=== PATIENT | male | born 1945 | race Caucasian/White ===

== ENCOUNTER 2019-07-15 12:10 | Inpatient (IN) ==
--- NOTE | 2019-07-15 12:31 | Diag Imaging Result Doc PS360 ---
EXAM: CT HEAD/C-SPINE W/O CONTRAST 07/15/2019 HISTORY: head injury TECHNIQUE: This exam was performed using automated exposure control, adjustment of mA or kV according to patient size, and/or use of iterative reconstruction technique. COMMENT: There are dense calcifications in the vertebral arteries bilaterally and also in the right internal carotid artery. There is no evidence of mass effect, bleed, or abnormal extra-axial fluid collection. Compared to 12/14/2016, there has been no appreciable change. There is some mucosal thickening in the right maxillary sinus. There are no air-fluid levels. The calvarium is intact. Cervical spine: There is no evidence of acute fracture or subluxation. There are degenerative changes in the atlantoaxial joint anteriorly and severe facet arthropathy on the right at C5-6 and to some extent at C3-4 and on the left at the C3-4 level. There is posterior osteophyte formation at C5-6 and C6-7. Compared to the previous study of 10/20/2014, the erosive changes at the C5-6 level on the right have improved. Otherwise are has been no significant change in the appearance of the cervical spine. IMPRESSION: No evidence of acute intracranial disease. Degenerative changes in the cervical spine as described. Electronically signed by Drew Lux 07/15/2019 12:28 PM
[2019-07-15 13:03] LABS: BE -4.7 mmoll (-3.0-3.0); BLOOD TYPE ARTERIAL; HCO3-(ACT) 21.1 mmoll (20.0-26.0); METHB 1.8 % (0.0-1.5); O2(CT) 16.5 mL/dL (15.0-23.0); O2HB 92.1 % (95.0-99.0); PCO2(98.6) 32 mmHg (35-45); PO2(98.6) 74 mmHg (60-100); SAMPLE BLOOD; THB 12.7 g/dL (11.5-17.4); pH(98.6) 7.39 (7.35-7.45)
[2019-07-15 13:06] LABS: ALLEN TEST NO; MODALITY ROOM AIR
[2019-07-15 13:29] LABS: BASO# 0.01 X1000 (0.0-0.2); BASO% 0.1 % (0.0-0.8); EOS# 0.01 X1000 (0.0-0.7); EOS% 0.1 % (0.0-10.0); HEMATOCRIT 38.7 % (42.0-52.0); IMM GRAN# 0.01 X1000 (0.0-0.04); IMM GRAN% 0.1 % (0.0-0.5); LYMPH# 0.58 X1000 (1.2-3.4); LYMPH% 8.6 % (20.5-51.1); MCH 33.6 PG (27-31); MCHC 33.6 g/dL (33-37); MONO# 0.32 X1000 (0.11-0.59); MONO% 4.7 % (1.7-9.3); MPV 9.5 FL (7.4-10.4); NEUT# 5.82 X1000 (1.4-6.5); NEUT% 86.4 % (42.2-75.2); PLT 128 X1000 (130-400); RBC 3.87 XMIL (4.7-6.1); RDW 15.1 % (11.5-14.5); WBC 6.75 X1000 (4.8-10.8)
[2019-07-15 13:40] LABS: AGAP 20; ALBUMIN 4.6 g/dL (3.5-5.0); ALKALINE PHOSPHATASE 91 U/L (32-122); BUN 8 mg/dL (8-22); CALCIUM 9.4 mg/dL (8.8-10.2); CHLORIDE 103 mmol/L (98-107); COSMO 288; ESTIMATED GFR > 60; GLUCOSE 89 mg/dL (70-104); GOT 102 U/L (10-34); GPT 75 U/L (10-44); POTASSIUM 3.4 mmol/L (3.5-5.1); SODIUM 146 mmol/L (136-145); TCO2 23 mmol/L (25-35); TOTAL PROTEIN 6.9 g/dL (6.3-8.3)
--- NOTE | 2019-07-15 13:40 | EKG Report ---
Test Performed on : 07/15/2019 12:49:24 PM Test Reason : fall Blood Pressure : / mmHG Vent. Rate : 078 BPM Atrial Rate : 078 BPM P-R Int : 258 ms QRS Dur : 090 ms QT Int : 416 ms P-R-T Axes : 061 -26 -09 degrees QTc Int : 474 ms Sinus rhythm. with 1st degree AV block. Moderate voltage criteria for LVH, may be normal variant Borderline ECG No previous ECGs available Unconfirmed Result
[2019-07-15 13:41] LABS: CK PROFILE 1585 U/L (24-204); INR 1.05; PROTIME 14.2 Seconds (11.0-16.0)
--- NOTE | 2019-07-15 13:47 | Diag Imaging Result Doc PS360 ---
EXAM: SHOULDER-LEFT HISTORY: fall TECHNIQUE: Shoulder three views including an axillary Y-view COMPARISON: None. FINDINGS: There is a fracture to the lateral humeral head. Humeral head is not dislocated from the glenoid. No separation to the acromioclavicular joint. IMPRESSION: Lateral humeral head fracture. Electronically signed by Wally Kirby 07/15/2019 1:44 PM
--- NOTE | 2019-07-15 13:48 | Diag Imaging Result Doc PS360 ---
EXAM: CHEST-PORTABLE HISTORY: fall TECHNIQUE: Chest single view COMPARISON: 12/03/2016 FINDINGS: The lungs are well expanded. No pneumothorax. No contusion. The heart is not enlarged. The vessels are not distended. There are no infiltrates. No effusion identified. IMPRESSION: No injury. Electronically signed by Wally Kirby 07/15/2019 1:45 PM
[2019-07-15] MEDS ORDERED: NS 1,000 ML IV ONE ×2 (13:59→14:18)
[2019-07-15 14:12] LABS: CK INDEX 1.3 (0.0-2.5); CK-MB 19.89 ng/mL (0.0-5.0)
[2019-07-15] MEDS ORDERED: ZOSYN 2.25 GM in NS 50 ML IV ONE (14:13)
[2019-07-15] MEDS ORDERED: ZOSYN 3.375 GM in NS 50 ML IV ONE ×2 (14:17→14:32)
[2019-07-15] MEDS ORDERED: NS 650 ML IV ONE (14:18)
--- NOTE | 2019-07-15 14:55 | PROVIDER DOCUMENTATION ---
This chart was entered by Nathalia Posada Scribe, acting as scribe for Rosalind Angulo MD. HPI-Head Injury - General Stated Complaint: fall Time Seen by Provider: 07/15/19 12:35 Source: patient Allergies/Adverse Reactions: Patient Allergies Allergy/AdvReac Type Severity Reaction Status Date / Time Sulfa (Sulfonamide Allergy Unknown Verified 07/15/19 14:19 Antibiotics) Home Medications: Home Medication List Medication Instructions Recorded Confirmed Last Taken Type Amlodipine [Norvasc] 5 mg PO DAILY 12/30/18 07/15/19 Unknown History Atenolol [Tenormin] 25 mg PO DAILY 12/30/18 07/15/19 12/30/18 History Lisinopril 20 mg PO DAILY 12/30/18 07/15/19 12/29/18 History - History of Present Illness-Head Injury Nature of Presenting Problem: 73yom presents to ED cc abrasions to right side of head after falling last night from a 2 step step ladder. Pt reports he fell from ladder, hit head, got up, cleaned himself, felt dizzy and fell again. Pt reports he must have slept on floor b/c when he 'woke' up this morning he was on floor so he called EMS. Pt reports he drank whiskey last night. Pt denies being on blood thinners. Pt has hx of HTN. Head Injury Location: reports: occipital Onset/Duration: reports: last night Method of Injury: reports: fell Any recent trauma/injury?: reports: minor, to head Loss of Consciousness: unsure Injury Associated Symptoms: reports: headaches Locality of Occurance: Home Similar Symptoms Previously?: No Recently seen or treated by another doctor?: No Review of Systems - Adult - REVIEW OF SYSTEMS - ADULT Constitutional: reports: see HPI. denies: chills, fever, fatique Eyes: reports: no symptoms reported Ears, Nose, Mouth & Throat: reports: no symptoms reported Cardiovascular: reports: no symptoms reported Respiratory: reports: see HPI Gastrointestinal: reports: see HPI. denies: abdominal pain, diarrhea, nausea, vomiting Genitourinary: reports: no symptoms reported Musculoskeletal: reports: see HPI, joint pain (left shoulder) Integumentary: reports: see HPI, other (laceration to occipital) Neurological: reports: see HPI, headache/migraines Psychiatric: reports: no symptoms reported Endocrine: reports: no symptoms reported Hematologic/Lymphatic: reports: no symptoms reported Allergic/Immunologic: reports: no symptoms reported All Other Systems: Reviewed and Negative Past History - Adult - PAST MEDICAL HISTORY-ADULT Review of Records: reports: Nursing Assessment Review, Medications Reviewed, Social history reviewed & non-contributory. Major Childhood Illnesses: reports: denies history Cardiovascular: reports: HTN Respiratory: reports: denies history Gastrointestinal: reports: denies history Obstetrical/Gynecological: reports: denies history Genitourinary: reports: denies history Musculoskeletal: reports: denies history Neurological: reports: denies history Psychiatric: reports: denies history Endocrine/Immune: reports: denies history Other Conditions: reports: denies history - PRIOR SURGERIES/PROCEDURES Surgical/Procedure History: reports: other (Sabrina fundoplasty) - IMMUNIZATION STATUS Childhood Immunizations: UTD, See Nurse Assessment Flu Vaccine: See Nurse Assessment - FAMILY HISTORY Family History: reviewed, not pertinent Physical Exam- Neurological - Physical Exam-Neuro Initial Vital Signs Reviewed: Yes General Appearance: appears well, alert. negative: anxious, combative Eye Exam: bilateral eye: normal inspection, PERRL HENMT: normocephalic/atraumatic, moist mucous membranes. negative: angioedema Head Injury: other (3cm total laceration to occipital). negative: active bleeding Respiratory: chest non-tender, lungs clear, normal breath sounds. negative: wheezing Cardiovascular: normal peripheral pulses, regular rate, rhythm. negative: bradycardia, tachycardia Abdominal Exam: normal bowel sounds, non tender, soft. negative: tenderness Extremity: tenderness (left shoulder) rehabilitation medicine physician Exam: normal hearing, normal speech, PERRL Neurologic: rehabilitation medicine physician II-XII nml as tested, grossly normal. negative: facial droop, focal weakness, motor weakness, sensory deficit Integumentary: normal color, laceration(s) (3cm total laceration to occipital). negative: diaphoresis, jaundice Psych/Mental Status: normal mood/affect, oriented x 3. negative: anxious, d isheveled - Glascow Coma Scale Best Eye Response: (4) open spontaneously Best Verbal Response: (5) oriented Best Motor Response: (6) obeys commands Total Glascow Score: 15 Progress - PLAN OF CARE/RESULTS Progress/Plan/Lab Results: Vital Signs - 8 hr 07/15/19 12:13 07/15/19 13:53 07/15/19 14:11 Temperature 97.9 F Pulse Rate 79 71 64 Respiratory Rate 16 20 Blood Pressure 109/62 88/58 103/57 O2 Sat by Pulse Oximetry 92 L 96 92 L Laboratory Results - last 24 hr 07/15/19 07/15/19 07/15/19 12:35 12:43 13:00 WBC RBC Hgb Hct MCV MCH MCHC RDW Std Deviation Plt Count MPV Immature Gran % (Auto) Neut % (Auto) Lymph % (Auto) [place] % (Auto) Eos % (Auto) Baso % (Auto) Immature Gran # (Auto) Neut # (Auto) Lymph # (Auto) [place] # (Auto) Eos # (Auto) Baso # (Auto) PT INR PTT (Actin FS) Specimen Type ARTERIAL Sample Site R BRACHIAL pH 7.39 pCO2 32 L pO2 74 HCO3 21.1 Base Excess -4.7 L Oxyhemoglobin 92.1 L ABG O2 Sat (Calculated) 16.5 ABG O2 Saturation 96.0 ABG Carboxyhemoglobin 2.30 ABG Methemoglobin 1.8 H Dejan Test NO A-a O2 Difference 36.0 Total Hemoglobin 12.7 Lactate 4.80 H* Blood Gas Modality ROOM AIR FiO2 % 21.0 Sodium Potassium Chloride Carbon Dioxide Anion Gap BUN Creatinine Estimated GFR/1.73 m2 BUN/Creatinine Ratio Glucose POC Glucose 75 Calculated Osmolality Calcium Total Bilirubin AST ALT Alkaline Phosphatase Creatine Kinase Creatine Kinase Index CK-MB (CK-2) Troponin T Total Protein Albumin Globulin Albumin/Globulin Ratio Plasma Lactate Plasma/Serum Ethyl Alc 188 H 07/15/19 07/15/19 07/15/19 13:00 13:00 13:00 WBC 6.75 RBC 3.87 L Hgb 13.0 L Hct 38.7 L MCV 100.0 H MCH 33.6 H MCHC 33.6 RDW Std Deviation 15.1 H Plt Count 128 L MPV 9.5 Immature Gran % (Auto) 0.1 Neut % (Auto) 86.4 H Lymph % (Auto) 8.6 L [place] % (Auto) 4.7 Eos % (Auto) 0.1 Baso % (Auto) 0.1 Immature Gran # (Auto) 0.01 Neut # (Auto) 5.82 Lymph # (Auto) 0.58 L [place] # (Auto) 0.32 Eos # (Auto) 0.01 Baso # (Auto) 0.01 PT INR PTT (Actin FS) Specimen Type Sample Site pH pCO2 pO2 HCO3 Base Excess Oxyhemoglobin ABG O2 Sat (Calculated) ABG O2 Saturation ABG Carboxyhemoglobin ABG Methemoglobin Dejan Test A-a O2 Difference Total Hemoglobin Lactate Blood Gas Modality FiO2 % Sodium 146 H Potassium 3.4 L Chloride 103 Carbon Dioxide 23 L Anion Gap 20 BUN 8 Creatinine 1.0 Estimated GFR/1.73 m2 > 60 BUN/Creatinine Ratio 8 Glucose 89 POC Glucose Calculated Osmolality 288 Calcium 9.4 Total Bilirubin 1.20 H AST 102 H ALT 75 H Alkaline Phosphatase 91 Creatine Kinase 1585 H Creatine Kinase Index 1.3 CK-MB (CK-2) 19.89 H Troponin T Total Protein 6.9 Albumin 4.6 Globulin 2.0 Albumin/Globulin Ratio 2.0 Plasma Lactate 4.5 H* Plasma/Serum Ethyl Alc 07/15/19 07/15/19 07/15/19 13:00 13:00 13:19 WBC RBC Hgb Hct MCV MCH MCHC RDW Std Deviation Plt Count MPV Immature Gran % (Auto) Neut % (Auto) Lymph % (Auto) [place] % (Auto) Eos % (Auto) Baso % (Auto) Immature Gran # (Auto) Neut # (Auto) Lymph # (Auto) [place] # (Auto) Eos # (Auto) Baso # (Auto) PT 14.2 INR 1.05 PTT (Actin FS) 25.0 Specimen Type Sample Site pH pCO2 pO2 HCO3 Base Excess Oxyhemoglobin ABG O2 Sat (Calculated) ABG O2 Saturation ABG Carboxyhemoglobin ABG Methemoglobin Dejan Test A-a O2 Difference Total Hemoglobin Lactate Blood Gas Modality FiO2 % Sodium Potassium Chloride Carbon Dioxide Anion Gap BUN Creatinine Estimated GFR/1.73 m2 BUN/Creatinine Ratio Glucose POC Glucose 82 Calculated Osmolality Calcium Total Bilirubin AST ALT Alkaline Phosphatase Creatine Kinase Creatine Kinase Index CK-MB (CK-2) Troponin T 0.011 Total Protein Albumin Globulin Albumin/Globulin Ratio Plasma Lactate Plasma/Serum Ethyl Alc Orders Category Date Time Status Arm Sling DIRECTED Care 07/15/19 13:59 Active Cardiac Monitoring DIRECTED Care 07/15/19 12:39 Active Finger Stick Blood Sugar (ED) DIRECTED Care 07/15/19 12:39 Active Oxygen Therapy- ED Nursing DIRECTED Care 07/15/19 12:39 Active Saline Loc NOW Care 07/15/19 12:39 Active CHEST-PORTABLE [RAD] Stat Exams 07/15/19 12:[address] HEAD/C-SPINE W/O CONTRAST [CT] Stat Exams 07/15/19 12:05 Completed SHOULDER-LEFT [RAD] Stat Exams 07/15/19 12:40 Completed ABG [RESP] Routine Lab 07/15/19 12:43 Completed ALCOHOL BLOOD Stat Lab 07/15/19 13:00 Completed CBC WITH ELECTRONIC DIFF [HEME] Stat Lab 07/15/19 13:00 Completed CK PROFILE [SP CHEM] Stat Lab 07/15/19 13:00 Completed CK PROFILE [SP CHEM] Stat Lab 07/15/19 14:03 Ordered COMPREHENSIVE METABOLIC PANEL [CHEM] Stat Lab 07/15/19 13:00 Completed LACTATE, PLASMA [CHEM] Stat Lab 07/15/19 13:00 Completed PROTIME WITH INR [COAG] Stat Lab 07/15/19 13:00 Completed PTT [COAG] Stat Lab 07/15/19 13:00 Completed TROPONIN T Stat Lab 07/15/19 13:00 Completed TROPONIN T Stat Lab 07/15/19 14:[address] [URINALYSIS] Stat Lab 07/15/19 13:34 Or[address] URINE DRUG SCREEN PL Stat Lab 07/15/19 13:34 Ordered 0.9% Sodium Chloride Inj [Ns] 1,000 ml Med 07/15/19 13:59 Active IV 999 mls/hr 0.9% Sodium Chloride Inj [Ns] 1,000 ml Med 07/15/19 14:18 Active IV 999 mls/hr 0.9% Sodium Chloride Inj [Ns] 650 ml Med 07/15/19 14:18 Active IV 999 mls/hr Piperacillin/Tazobactam [Zosyn] 2.25 gm Med 07/15/19 14:13 Discontinued 0.9% Sodium Chloride Inj [Ns] 50 ml IV NOW Piperacillin/Tazobactam [Zosyn] 3.375 gm Med 07/15/19 14:32 Discontinued 0.9% Sodium Chloride Inj [Ns] 50 ml IV NOW Altered Mental Status Stat Oth 07/15/19 12:39 Ordered EKG [EKG] Stat Ther 07/15/19 12:39 Draft Result Diagrams: 07/15/19 13:00 07/15/19 13:00 - EKG 1 Time of EKG reading by physician:: 12:51 EKG Read and Signed by:: Rosalind Angulo EKG Interpretation (*Must complete 3 of following elements*): Normal (borderline) Rate: 78 Rhythm: sinus w/1st degree AV block QRS: LVH ST Wave: normal - XRAY 1 XRAY: Left XRAY Study: Shoulder Impression: See EMR Report (IMPRESSION: Lateral humeral head fracture. Electronically signed by Wally Kirby 07/15/2019 1:44 PM) 2 XRAY: Bilateral XRAY Study: Chest Impression: See EMR Report (IMPRESSION: No injury. Electronically signed by Wally Kirby 07/15/2019 1:45 PM) - CT/MRI 1 CT Study: Head, Neck Impression: See EMR Report (IMPRESSION: No evidence of acute intracranial disease. Degenerative changes in the cervical spine as described. Electronically signed by Drew Lux 07/15/2019 12:28 PM) - CONSULTS/PCP/HOSPITALIST Notification #1 *Consult/PCP/Hospitalist*: Dr. Joel Time Discussed: 14:51 Consult Disposition: Admit (accepted pt) Departure - Departure Date of Disposition Decision: 07/15/19 Time of Disposition Decision: 14:10 DIAGNOSIS: Rhabdomyolysis, Hypotension, Head injury, Intoxication, Lactic acid acidosis Disposition: ADMITTED INPATIENT 09 Certified Medical Emergency: Emergent Condition: Stable Additional Freetext Instructions: ED Follow Up Instructions: You have been treated by a care provider in the Emergency Department. These instructions are being provided to you so you can have an understanding of how to care for yourself upon discharge. Upon discharge from the Emergency Department, you are responsible for making arrangements for follow-up care by a physician of your choice. Take all prescribed medications as directed. Return to the Emergency Department immediately for any new or worsening s ymptoms. You may call the Physician Referral phone number at [phone] to obtain a list of Physicians who are taking new patients. Referrals and Follow-Ups: None,PCP [Primary Care Provider] - - Critical Care Note This patient required my direct & personal management of CC.: No Attestation - Physician/ [place] Attestation Patient care was provided by Advanced Practice Provider:: No The physician spent face to face time with patient:: Yes Advanced Practice Provider documentation review:: Supervising physician onsite and consulted in the evaluation and care of this patient. The physician did have a face to face encounter with the patient. This chart was documented by the indicated scribe, (Nathalia Posada Scribe) and accurately reflects the services I performed and decisions made by me, Larry Angulo MD, as attested by the provider's signature.
[2019-07-15] MEDS ORDERED: ZOFRAN IV PRN ×2 (15:02→15:39)
[2019-07-15] MEDS ORDERED: MORPHINE IV PRN (15:02)
[2019-07-15] MEDS ORDERED: LIBRIUM PO ONE (15:05)
[2019-07-15] MEDS ORDERED: TYLENOL PO PRN (15:39)
[2019-07-15] MEDS ORDERED: NORCO-7.5 PO PRN (15:39)
[2019-07-15] MEDS ORDERED: ATARAX PO PRN (15:40)
[2019-07-15] MEDS ORDERED: BENTYL PO PRN (15:40)
[2019-07-15] MEDS ORDERED: ROBAXIN PO PRN (15:40)
[2019-07-15] MEDS ORDERED: ATIVAN IV PRN (15:41)
[2019-07-15] MEDS: LIBRIUM PO SCH ×2 (15:45→20:58)
[2019-07-15] MEDS ORDERED: M.V.I.-12 10 ML, FOLIC ACID 1 MG, MAGNESIUM SULFATE 1 GM, THIAMINE 100 MG in NS 1,000 ML IV SCH (16:00)
[2019-07-15] MEDS: NS 1,000 ML IV PRN (16:12)
[2019-07-15 17:42] LABS: CK INDEX 1.3 (0.0-2.5); CK-MB 18.03 ng/mL (0.0-5.0)
[2019-07-15 17:48] LABS: URINE SOURCE CLEAN CATCH
[2019-07-15 17:51] LABS: BILIRUBIN URINE NEGATIVE (NEGATIVE); BLOOD URINE NEGATIVE (NEGATIVE); CLARITY CLEAR (CLEAR); COLOR YELLOW; GLUCOSE URINE NEGATIVE (NEGATIVE); KETONE URINE 2+(Moderate) mg/dL (NEGATIVE); LEUKOCYTES URINE TRACE (NEGATIVE); NITRITE URINE NEGATIVE (NEGATIVE); PH URINE 6.5; PROTEIN URINE 1+(30 mg/dL) mg/dL (NEGATIVE); SP GRAVITY URINE 1.015; UROBILINOGEN URINE 1 mg/dL
[2019-07-15 17:57] LABS: URINE BACTERIA 1+ /HFP; URINE CAST NONE SEEN /LPF; URINE CRYSTAL CA OXALATE PRESENT /HPF; URINE EPITHELIAL CELLS >10 /HPF (<10); URINE RBC <10 /HPF (<10); URINE WBC <10 /HPF (<10); URINE YEAST NONE SEEN /HPF
[2019-07-15 18:11] LABS: UR AMPHETAMINES QUAL NONE DETECTED (NONE DETECT); UR BARBITUATES QUAL NONE DETECTED (NONE DETECT); UR BENZODIAZEPIN QUAL PRESUMPTIVE POSITIVE (NONE DETECT); UR CANNABINOIDS QUAL NONE DETECTED (NONE DETECT); UR COCAINE QUAL NONE DETECTED (NONE DETECT); UR METHADONE QUAL NONE DETECTED (NONE DETECT); UR METHAMPHETAMINE QUAL NONE DETECTED (NONE DETECT); UR OPIATES QUAL NONE DETECTED (NONE DETECT); UR OXYCODONE QUAL NONE DETECTED (NONE DETECT); UR PCP QUAL NONE DETECTED (NONE DETECT); UR PROPOXYPHENE QUAL NONE DETECTED (NONE DETECT); UR TCA QUAL NONE DETECTED (NONE DETECT)
--- NOTE | 2019-07-15 18:49 | Diag Imaging Result Doc PS360 ---
EXAM: KNEE 3 VIEWS LEFT 07/15/2019 HISTORY: left knee pain after fall TECHNIQUE: Left knee three views COMMENT: There is a comminuted fracture of the distal femur status post internal fixation. There is a total knee arthroplasty which apparently preceded the fracture. There are no radiographs more recent than the study of 02/11/2019, at which time the fracture was present but the internal fixation was not. The alignment of the fracture fragments is better than on the previous study. There is some apparent callus formation. The tibia and fibula are stable in appearance. IMPRESSION: Healing fracture of the distal femur status post internal fixation. Electronically signed by Drew Lux 07/15/2019 6:47 PM
--- NOTE | 2019-07-15 18:52 | Diag Imaging Result Doc PS360 ---
EXAM: XRAY PELVIS W/HIP 2-3VW LT 07/15/2019 HISTORY: leg pain post fall TECHNIQUE: AP pelvis and left hip three views COMMENT: There is an intertrochanteric fracture of the left femur. There is some joint space narrowing in both hips. The lesser trochanteric fragment is somewhat displaced. IMPRESSION: Left intertrochanteric fracture. Electronically signed by Drew Lux 07/15/2019 6:50 PM
--- NOTE | 2019-07-15 19:34 | HISTORY AND PHYSICAL ---
PRIMARY CARE PROVIDER: Dr. Paris. CHIEF COMPLAINT: Two falls yesterday with left-sided pain. HISTORY OF PRESENT ILLNESS: Mr. Misbah Thomas is a 73-year-old, male, with a medical history of hypertension, anxiety, GERD, peptic ulcer disease, and alcoholism. Apparently, he drinks scotch and whiskey on a daily basis, and has so since the age of 20, at least 2 glasses per day. He comes with a continued elevated alcohol level, although he claims that his last alcoholic beverage was yesterday. Apparently, he had 2 falls. He states this is from not being balanced and he fell on his left side. Imaging shows he has a left humeral head fracture. He also developed a very small laceration to the left side of his scalp, which is now stapled. He is currently complaining of left hip down to the knee pain, which we will also get imaging of. He is going to be watched in the ICU. He will be started on a protocol to decrease risk for withdrawals of alcohol, and will consult Orthopedic Surgery for the left shoulder fracture. PAST MEDICAL HISTORY: 1. Hypertension. 2. Anxiety. 3. GERD. 4. Peptic ulcer disease. SURGICAL HISTORY: 1. Right knee cortisone shots every 6 months since 2005. 2. Left total knee replacement in 2014. 3. Left femur in January 2019, surgically repaired. 4. Right wrist surgery. 5. Sabrina fundoplication in 2008. 6. Right inguinal hernia repair. SOCIAL HISTORY: Smoked 1 cigarette per day from the age 31 to 39. Drinks whiskey and scotch daily since the age of 20, at least 2 glasses per day. Denies any illicit drug use. He lives at home alone. 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 Uses a cane at home. His left him 6 years ago. FAMILY HISTORY: Denies any family medical history. ALLERGIES: Sulfa. HOME MEDICATIONS: 1. Lisinopril 20 mg p.o. daily. 2. Amlodipine 5 mg p.o. daily. 3. Atenolol 25 mg p.o. daily. REVIEW OF SYSTEMS: Difficult to obtain, but most were negative, except for those mentioned above in HPI. PHYSICAL EXAMINATION: VITAL SIGNS: Temperature 99.0 degrees, heart rate 80, respiratory rate 20, blood pressure 131/68, O2 saturation 98% on room air. He is 6 feet 2 inches tall, 203 pounds, with BMI 24.7. GENERAL: Mr. Misbah Thomas is a 73-year-old, male. He is in no acute distress. Maybe a tad bit of agitation, but not terrible. He answers most questions appropriately, but does still seem to have some confusion. HEENT: Normocephalic. On the left side of his scalp, he has a laceration that required 2 jyoti. Pupils equal, round, and reactive to light. Extraocular movements intact. Mucous membranes are moist. NECK: Trachea midline. CARDIOVASCULAR: S1, S2. Regular rate and rhythm. No rubs, gallops, or murmurs. He has 1+ lower extremity pitting edema, +2 dorsalis and radial pulses. Negative JVD or carotid bruits. PULMONARY: Clear to auscultation. Bilateral breath sounds. No accessory muscle use or work of breathing noted. GASTROINTESTINAL: Soft, nontender, nondistended. Positive bowel sounds x4. EXTREMITIES: Decreased range of motion in the left lower and upper extremity due to pain. Strength 5/5. SKIN: Warm, dry, intact, except for the scalp. There are some lacerations on top of the scalp with 2 jyoti. There are small, little, different stages of bruises and cuts along the arms. NEUROLOGIC: He is oriented x name. Follows commands. LABORATORY DATA: White blood cells 6000, hemoglobin 13, hematocrit 38, platelet count 128,000. INR is 1.05, PTT is 25. ABG: PH 7.39, pCO2 of 32, bicarbonate -4.7, O2 saturation 92%, lactate is 4.8, this is on room air. He has had 2 serum lactate, which were 4.5 and 4.6. Sodium 146, potassium 3.4, BUN 8, creatinine is 1.0, glucose 89, calcium 9.4. Bilirubin 1.20, AST 102, ALT 75. CK 1430. Troponin less than 0.01. Alcohol level is 188. IMAGING: Head/cervical spine CT: No evidence of intracranial disease; degenerative changes in the cervical spine. Chest x-ray: No injury. Left shoulder x-ray: Lateral humeral head fracture. EKG: Normal sinus rhythm with a first-degree AV block, rate is 78, QTc 474. ASSESSMENT/PLAN: 1. Frequent falls with two falls yesterday due to balance issues and likely secondary to alcohol intoxication. Now, with left humeral head fracture. Orthopedic Surgery has been consulted. Will probably have to put in a sling. 2. Alcohol abuse with intoxication as well. Will be started on a Librium taper, p.r.n. Ativan, banana bag, and IV fluids. 3. Traumatic rhabdomyolysis. CKs are elevated at 1430. We will do aggressive IV fluid hydration. Kidney function is preserved. 4. Lactic acidosis. Likely secondary to the traumatic rhabdomyolysis. Again, he is getting IV fluid hydration. 5. Hyperbilirubinemia. We will recheck it in the morning. It should improve with IV fluids, unless he is developing some liver dysfunction secondary to alcoholism. 6. Gastroesophageal reflux disease. 7. Anxiety. 8. Hypertension. We are holding antihypertensives. Apparently, he presented with a little bit lower blood pressures in the ER, but they are stable now. 9. Deep venous thrombosis prophylaxis. SCDs. 10. Complaints of left hip and leg pain. We will get an x-ray to evaluate for any injury. 11. Scalp laceration with 2 jyoti. Dictated by NALDO Ward for Josh Christensen MD Addendum: Patient seen and examined by myself. Agree with NALDO note. It reflects my assessment and plan. Patient is being admitted to hospital for frequent falls and alcohol abuse. Will order left hip x ray because of hip pain and will consult Orthopedics for humeral fracture. Will provide IV fluids for rhabdomyolysis and will go from there. cc: NALDO Ward MD [facility]
[2019-07-16] MEDS: LIBRIUM PO SCH ×5 (02:21→23:12)
[2019-07-16] MEDS: NS 1,000 ML IV PRN ×3 (02:22→18:18)
[2019-07-16 06:36] LABS: BASO# 0.01 X1000 (0.0-0.2); BASO% 0.2 % (0.0-0.8); EOS# 0.06 X1000 (0.0-0.7); EOS% 1.2 % (0.0-10.0); HEMATOCRIT 29.4 % (42.0-52.0); HEMOGLOBIN 9.6 g/dL (14.0-18.0); LYMPH# 0.86 X1000 (1.2-3.4); LYMPH% 16.7 % (20.5-51.1); MCH 33.3 PG (27-31); MCHC 32.7 g/dL (33-37); MCV 102.1 FL (81-99); MONO# 0.45 X1000 (0.11-0.59); MONO% 8.8 % (1.7-9.3); NEUT# 3.76 X1000 (1.4-6.5); NEUT% 73.1 % (42.2-75.2); PLT 102 X1000 (130-400); RBC 2.88 XMIL (4.7-6.1); RDW 14.6 % (11.5-14.5); WBC 5.14 X1000 (4.8-10.8)
[2019-07-16 06:47] LABS: AGAP 12; ALBUMIN 3.7 g/dL (3.5-5.0); ALKALINE PHOSPHATASE 70 U/L (32-122); BUN 7 mg/dL (8-22); CALCIUM 8.3 mg/dL (8.8-10.2); CHLORIDE 104 mmol/L (98-107); CK TOTAL 1105 U/L (24-204); COSMO 281; CREATININE 0.6 mg/dL (0.7-1.2); ESTIMATED GFR > 60; GLUCOSE 95 mg/dL (70-104); GOT 66 U/L (10-34); GPT 51 U/L (10-44); MAGNESIUM 1.6 mg/dL (1.5-2.7); POTASSIUM 3.2 mmol/L (3.5-5.1); SODIUM 142 mmol/L (136-145); TCO2 26 mmol/L (25-35); TOTAL PROTEIN 5.8 g/dL (6.3-8.3)
[2019-07-16] MEDS ORDERED: TENORMIN PO SCH (11:00)
[2019-07-16] MEDS ORDERED: PRINIVIL PO SCH (11:00)
[2019-07-16] MEDS ORDERED: KLOR-CON PO ONE (11:03)
[2019-07-16] MEDS ORDERED: NORVASC PO SCH (11:10)
--- NOTE | 2019-07-16 11:31 | PROGRESS NOTE ---
DATE: 07/16/2019 SUBJECTIVE: The patient reports still feeling pain in the left hip. Denies any fever or chills. OBJECTIVE: Vital Signs: Temperature 99.2 degrees, heart rate 83, respiratory rate 19, blood pressure 180/83, O2 saturation 98% on room air. General Examination: This is a chronically ill- appearing, 73-year-old, male, lying in bed, in no acute distress. Cardiovascular Examination: S1 and S2 heard. No murmurs, gallops, or rubs. Regular rate and rhythm. Respiratory Examination: Clear bilaterally to auscultation. No work of breathing or using accessory muscles. Abdomen: Soft. Nontender to palpation. Nondistended. Bowel sounds present. No organomegaly. Extremities: No clubbing, cyanosis, or edema. There is decreased range of motion in the left lower extremity due to pain. Neurological Examination: The patient is alert and oriented x3. Moves 4 extremities. Skin: There is some ulceration on top of the scalp with two jyoti. There are small, little, different stages of bruises and cuts along the arms. Laboratory Data: White cell count 5.14, hemoglobin 9.6, hematocrit 29.4, platelets 102,000. The BMP reveals a potassium of 3.2, with creatinine 0.6, calcium 8.3. Total bilirubin 1.9, AST 66, ALT 71. ASSESSMENT/PLAN: 1. Left intertrochanteric hip fracture. The patient was admitted to the hospital for frequent falls. X-ray of the hip had not been ordered by the emergency room. Because of our suspicion for any hip trauma, we ordered one that basically shows a left hip intertrochanteric fracture. Yesterday, the patient mentioned to us that he wanted to be transferred to [facility] to have this surgery done by a different doctor. We have checked. There are no beds down there so the patient is okay to be transferred to [facility] to be taken care of by one of our orthopedic doctors. We will transfer him today. 2. Left humeral fracture. Patient is in a sling. Orthopedics will evaluate this patient in [place]. 3. Alcohol abuse with intoxication. The patient is a banana bag, intravenous fluids, and Ativan. We will continue to monitor. 4. Hypotension on admission. The patient's blood pressure started getting much better and actually was pretty much high at 180. At this point, we are going to monitor this patient closely and continue with home medications. 5. Hyperbilirubinemia, most likely related to chronic alcohol consumption. At this point, we will continue to monitor. 6. Gastroesophageal reflux disease. We will continue with omeprazole. 7. Anxiety disorder. We will continue with home medications. 8. Disposition. The patient is being transferred to [facility] for further orthopedic care. cc: Josh Christensen MD
[2019-07-16] MEDS ORDERED: ZOFRAN IV PRN (13:10)
[2019-07-16] MEDS ORDERED: TYLENOL PO PRN (13:10)
[2019-07-16] MEDS ORDERED: ATIVAN IV PRN (13:11)
[2019-07-16] MEDS ORDERED: BENTYL PO PRN (13:11)
[2019-07-16] MEDS ORDERED: ATARAX PO PRN (13:17)
[2019-07-16] MEDS: ROBAXIN PO PRN (13:57)
[2019-07-16] MEDS ORDERED: M.V.I.-12 10 ML, FOLIC ACID 1 MG, MAGNESIUM SULFATE 1 GM, THIAMINE 100 MG in NS 1,000 ML IV SCH (16:00)
[2019-07-16] MEDS: M.V.I.-12 10 ML, FOLIC ACID 1 MG, MAGNESIUM SULFATE 1 GM, THIAMINE 100 MG in NS 1,000 ML IV SCH (16:09)
--- NOTE | 2019-07-16 18:52 | ORTHOPAEDICS PROGRESS NOTE ---
DATE: 07/16/2019 REASON FOR CONSULTATION: Left arm and left hip pain after a fall. HISTORY OF PRESENT ILLNESS: Mr. Thomas is a 73-year-old male with a past medical history of hypertension, anxiety, gastroesophageal reflux disease, peptic ulcer disease, and alcoholism who presented to the [place] after a fall in his home. He states he was on a 4-step stool when it gave way and he fell onto the left side. He had immediate pain to the left shoulder and left hip. He also hit the head. He states he did not lose consciousness or have any lightheadedness or dizziness. He presented to the [facility] where images showed a left nondisplaced greater tuberosity fracture and a left intertrochanteric hip fracture. Initially, he was going to be transferred to [facility] because he had a previous femur surgery done by Dr. Du. Unfortunately, it sounds like [place] did not have any beds available, so he was unable to be transported there. Because of this, he has been transported to [facility] in anticipation for surgical fixation of that left hip. Orthopedics has been consulted for management of the left hip. PAST MEDICAL HISTORY: 1. Hypertension. 2. Anxiety. 3. Gastroesophageal reflux disease. 4. Peptic ulcer disease. 5. Alcoholism. SURGICAL HISTORY: 1. Left total knee replacement 2014. 2. Left distal femur ORIF in January [address] Du. 3. ORIF right wrist. 4. Sabrina fundoplication in 2008. 5. Right inguinal hernia repair. SOCIAL HISTORY: He smokes approximately 1 pack of cigarettes a day from the ages [age]. He is no longer smoking. He does drink whiskey and/or scotch daily. He denies any illicit drug use. He lives at home alone. He uses a cane at home. FAMILY HISTORY: Noncontributory. ALLERGIES: Sulfa. HOME MEDICATIONS: 1. Lisinopril 20 mg p.o. daily. 2. Amlodipine 5 mg p.o. daily. 3. Atenolol 25 mg p.o. daily. REVIEW OF SYSTEMS: A 10 point review of systems was negative except what was mentioned in HPI. PHYSICAL EXAMINATION: Current Vital Signs: Temperature is 98.6 degrees, pulse 84, respirations 20, blood pressure 160/96. He is saturating 97% on room air. General: This is a 73-year-old male in no acute distress. Neurological: He is alert and oriented x3 with no focal deficits. Cardiovascular: Regular rate and rhythm. Pulmonary: Breathing is even and nonlabored with equal chest expansion. Abdomen: Appears nondistended. Extremities: Left lower extremity. He has tenderness to palpation at the hip. It is short and externally rotated. He does have a large incision laterally over the distal femur that is well healed. He does have a midline incision from the total knee that is well healed. He does have a small abrasion to the left knee. There is no erythema or drainage to it. He does have tenderness to palpation of the left upper extremity exam. He has tenderness to palpation over the left humeral head. He has he has some swelling distally. He has decreased range of motion related to pain. His hand intrinsics are intact. He has some general swelling. IMAGING: A hip film reveal revealed a left intertrochanteric fracture. You can also see plates and screws from that left distal femur ORIF. These were reviewed and interpreted by Dr. Frances. The left shoulder film shows a nondisplaced greater tuberosity fracture. ASSESSMENT: 1. Left nondisplaced greater tuberosity fracture. 2. Left intertrochanteric fracture. PLAN: Mr. Thomas is okay. Since he cannot be admitted to [place], we are proceeding with surgery of this left hip here at [facility]. We want to do this as soon as possible. He has been eating and drinking today, so we will plan to do this for tomorrow. It looks like medically he is okay to do that. He is not on any blood thinners. It is a little bit difficult because he does have that distal plate there. So plans may change once we get in there according to the difficulty. But the plan now is for a left trochanteric femoral nailing. We may have to remove some of those distal screws and the patient is aware of this. Risks and benefits were discussed. The risks include, but not limited to, damage to nerves, arteries, and veins, malunion, nonunion, hardware related issues, continued pain, DVT, poor wound healing, infection, and other imponderables and risk of general anesthesia. The patient understands and wishes to proceed. We are going to try and get him on the schedule for tomorrow. He should be able to be full weightbearing, postoperatively. Dictated by NALDO Jung for Fabian Frances MD cc: NALDO Jung MD
[2019-07-16] MEDS: NORCO-7.5 PO PRN (20:49)
[2019-07-17] MEDS: NORCO-7.5 PO PRN (01:03)
[2019-07-17] MEDS: NS 1,000 ML IV PRN (01:05)
[2019-07-17] MEDS ORDERED: DIPRIVAN 1% ONE (06:25)
[2019-07-17] MEDS ORDERED: XYLOCAINE-MPF 2% ONE (06:26)
[2019-07-17] MEDS ORDERED: FENTANYL ONE ×2 (06:28→08:39)
[2019-07-17] MEDS ORDERED: KEFZOL 2 GM/D5W 2 GM/50 ML IVPB ONE (06:51)
[2019-07-17 07:19] LABS: BASO# 0.01 X1000 (0.0-0.2); BASO% 0.2 % (0.0-0.8); EOS# 0.16 X1000 (0.0-0.7); EOS% 3.6 % (0.0-10.0); HEMATOCRIT 23.8 % (42.0-52.0); HEMOGLOBIN 7.9 g/dL (14.0-18.0); LYMPH# 0.94 X1000 (1.2-3.4); LYMPH% 21.4 % (20.5-51.1); MCH 33.9 PG (27-31); MCHC 33.2 g/dL (33-37); MCV 102.1 FL (81-99); MONO# 0.36 X1000 (0.11-0.59); MONO% 8.2 % (1.7-9.3); MPV 9.9 FL (7.4-10.4); NEUT# 2.93 X1000 (1.4-6.5); NEUT% 66.6 % (42.2-75.2); PLT 80 X1000 (130-400); RBC 2.33 XMIL (4.7-6.1); RDW 14.2 % (11.5-14.5)
[2019-07-17 07:40] LABS: AGAP 12; ALB/GLOB RATIO 1.8; ALBUMIN 3.5 g/dL (3.5-5.0); ALKALINE PHOSPHATASE 55 U/L (32-122); BUN 7 mg/dL (8-22); CALCIUM 8.2 mg/dL (8.8-10.2); CHLORIDE 103 mmol/L (98-107); CK TOTAL 716 U/L (24-204); COSMO 276; CREATININE 0.6 mg/dL (0.7-1.2); ESTIMATED GFR > 60; GLUCOSE 103 mg/dL (70-104); GOT 43 U/L (10-34); GPT 38 U/L (10-44); MAGNESIUM 1.6 mg/dL (1.5-2.7); POTASSIUM 3.2 mmol/L (3.5-5.1); SODIUM 139 mmol/L (136-145); TCO2 24 mmol/L (25-35); TOTAL PROTEIN 5.4 g/dL (6.3-8.3)
[2019-07-17] MEDS ORDERED: DECADRON ONE (07:41)
[2019-07-17] MEDS ORDERED: ZOFRAN ONE (07:41)
--- NOTE | 2019-07-17 08:34 | OPERATIVE NOTE ---
PROCEDURE DATE: 07/17/2019 PREOPERATIVE DIAGNOSIS: Left displaced intertrochanteric femur fracture. POSTOPERATIVE DIAGNOSIS: Left displaced intertrochanteric femur fracture. PROCEDURE: Intramedullary nailing of the left femur with a Synthes TFN 10 x 107 mm nail. SURGEON: Fabian Frances MD. AIR VALVE MECHANIC: NALDO Mishra, who was necessary for proper positioning and assistance with placement of implants and improved efficiency. ANESTHESIA: General. IV FLUIDS: 800 mL lactated Ringer's. ESTIMATED BLOOD LOSS: 150 mL. COMPLICATIONS: None. INDICATION: The patient is a pleasant 73-year-old male who is 2 days status post fall, sustaining a left intertrochanteric femur fracture. The patient does have a history of hypertension, anxiety, gastroesophageal reflux disease, peptic ulcer disease and alcoholism. He states he had 2 falls. He is recovering approximately 5 months status post ORIF for a left supracondylar periprosthetic fracture. X-rays revealed a left displaced intertrochanteric femur fracture. He was admitted to the ICU initially for initial evaluation and was subsequent transferred to [facility] for orthopedic treatment. Recommendation to proceed with intramedullary nailing of the left femur was offered. The risks and benefits of surgery were explained, including the risks of anesthesia, , bleeding, infection, failure to relieve pain, postoperative stiffness, nerve injury, blood clots, failure of fixation and other imponderables. All questions answered and the patient wished to proceed with surgery. DETAILS OF OPERATION: Patient taken to the operating room, underwent general anesthesia. After adequate anesthesia was obtained, he was placed supine on the operating table. Provisional reduction was then obtained. It had good position on both AP and lateral projections. Left lower extremity was subsequently prepped and draped in the usual sterile fashion. Approximately 3 fingerbreadths proximal to the greater trochanter, a lateral incision was made. Blunt dissection performed down to the greater trochanter. A guidepin was then placed in position. Guidepin was advanced into the intramedullary canal. A starting reamer was then passed. A ball-tip guidepin was then placed and a 10 mm reamer followed by an 11 mm reamer was passed in preparation for a 10 mm diameter nail. A Synthes 10 x 170 mm nail was then placed. After good position was confirmed, using the outrigger guide, the guide was placed along the lateral cortex through a lateral incision. The guidepin was then advanced across the fracture site in the femoral neck and head. It had good position on both AP and lateral projections. The lateral cortex was reamed. A 105 mm helical blade was then advanced and had good purchase. Had good position on both AP and lateral projections. The proximal set screw was tightened in standard fashion. Using the guide, the incision extended distally the distal locking screw guide. A drill was then passed followed by a 42 mm screw. It had good purchase. Final C-arm visualization revealed good alignment of fracture and good position of the hardware. The wounds were copiously irrigated. Number 1 Vicryl was used to repair the deep fascia in the proximal wound, 2-0 Vicryl was used to close the subcutaneous tissue the 2 wounds, followed by skin jyoti. Adaptic, sterile 4 x 4, ABD pad, and tape to the left lower extremity. Patient tolerated the procedure well with no complications, transferred to the recovery room in stable condition. cc: Fabian Frances MD MTDD
[2019-07-17] MEDS ORDERED: DEMEROL ONE (08:45)
[2019-07-17 08:55] LABS: URINE SOURCE CATH
[2019-07-17 09:02] LABS: BILIRUBIN URINE NEGATIVE (NEGATIVE); BLOOD URINE NEGATIVE (NEGATIVE); COLOR YELLOW; GLUCOSE URINE NEGATIVE (NEGATIVE); KETONE URINE 10 mg/dL (NEGATIVE); LEUKOCYTES URINE NEGATIVE (NEGATIVE); NITRITE URINE NEGATIVE (NEGATIVE); PH URINE 6.5; PROTEIN URINE NEGATIVE (NEGATIVE); SP GRAVITY URINE 1.016; TURBIDITY URINE CLEAR (CLEAR); UROBILINOGEN URINE 3 mg/dL (NORMAL)
[2019-07-17 09:04] LABS: UR EPITHELIAL CELLS <10 /HPF (<10); URINE BACTERIA NEGATIVE /HPF; URINE RBC <10 /HPF (<10); URINE WBC <10 /HPF (<10)
[2019-07-17] MEDS ORDERED: VERSED ONE (09:23)
[2019-07-17] MEDS ORDERED: ZOFRAN IV PRN (09:52)
[2019-07-17] MEDS ORDERED: MORPHINE IV PRN (09:52)
[2019-07-17] MEDS ORDERED: HALDOL IV PRN (10:00)
[2019-07-17] MEDS: POTASSIUM CHLORIDE 20 MEQ/SWI 20 MEQ/100 ML IVPB IV SCH ×2 (10:39→12:52)
[2019-07-17] MEDS: LIBRIUM PO SCH ×3 (10:43→22:52)
[2019-07-17] MEDS: TENORMIN PO SCH (10:44)
[2019-07-17] MEDS: PRINIVIL PO SCH (10:44)
[2019-07-17] MEDS: NORVASC PO SCH (10:44)
[2019-07-17 12:51] LABS: RETIC% 1.97 % (0.8-2.1)
[2019-07-17 12:56] LABS: HEMATOCRIT 23.5 % (42.0-52.0); HEMOGLOBIN 7.8 g/dL (14.0-18.0)
[2019-07-17 13:04] LABS: IRON SATURATION 16 %; TIBC 208 ug/dL; TOTAL IRON 34 ug/dL (53-167); UNBOUND IRON 174 ug/dL (112-346)
[2019-07-17] MEDS ORDERED: SODIUM CHLORIDE 0.9% 10 ML ONE (13:24)
[2019-07-17] MEDS ORDERED: NEO-SYNEPHRINE ONE (13:24)
[2019-07-17 13:25] LABS: FERRITIN 579 ng/mL (30-400)
[2019-07-17] MEDS ORDERED: ROBINUL ONE (13:38)
[2019-07-17] MEDS ORDERED: NEOSTIGMINE ONE (13:38)
[2019-07-17] MEDS: NS 1,000 ML IV SCH (14:52)
[2019-07-17] MEDS: TYLENOL PO SCH (14:53)
[2019-07-17] MEDS: OXY IR PO PRN ×3 (15:29→23:20)
[2019-07-17] MEDS: KEFZOL 2 GM/D5W 2 GM/50 ML IVPB IV SCH ×2 (15:31→22:52)
[2019-07-17] MEDS: M.V.I.-12 10 ML, FOLIC ACID 1 MG, MAGNESIUM SULFATE 1 GM, THIAMINE 100 MG in NS 1,000 ML IV SCH (17:44)
[2019-07-17] MEDS: PERIDEX MT SCH (20:30)
[2019-07-17] MEDS: COLACE PO SCH (20:30)
[2019-07-18] MEDS: OXY IR PO PRN ×4 (02:25→22:13)
[2019-07-18] MEDS: ROBAXIN PO PRN (03:54)
--- NOTE | 2019-07-18 04:24 | PROGRESS NOTE ---
DATE: 07/17/2019 SUBJECTIVE: The patient has no major complaints. OBJECTIVE: Vital signs: Blood pressure 141/69, heart rate 80, respiratory rate 20, temperature 98.8 degrees, saturation 94% on room air. Cardiovascular: Regular rate and rhythm. Pulmonary: Bilateral breath sounds. Clear to auscultation. Gastrointestinal: Soft, nontender, nondistended. Bowel sounds are positive. LABORATORY DATA: White count 4.4, H and H 7 and 23, platelets of 80,000. Potassium 3.2. PROBLEM LIST: 1. A left fracture. He has undergone surgery without difficulty. Further care per Orthopedic Service. 2. Left humeral fracture. We will continue patient in sling. 3. Alcohol abuse with history of dependence. We will continue to monitor closely. Banana bag. 4. Symptomatic anemia. We will continue to treat closely. Check iron stores, B12, folate, and monitor. DISPOSITION: Will most likely need rehab once stabilized. Continue to follow. cc: Dat Cast MD
[2019-07-18] MEDS: TYLENOL PO SCH ×4 (05:40→18:05)
[2019-07-18] MEDS: NS 1,000 ML IV SCH ×2 (05:53→18:22)
[2019-07-18] MEDS ORDERED: FERRLECIT 125 MG in NS 100 ML IV ONE (06:00)
[2019-07-18] MEDS: LIBRIUM PO SCH ×2 (06:20→09:11)
[2019-07-18] MEDS: XARELTO PO SCH (06:21)
--- NOTE | 2019-07-18 07:02 | ORTHOPAEDICS PROGRESS NOTE ---
DATE: 07/18/2019 SUBJECTIVE: The patient is a 73-year-old male who is 1 day status post intramedullary nailing of the left femur for intertrochanteric femur fracture. He is currently resting comfortably. Patient also sustained a nondisplaced on left greater tuberosity fracture at the time of the fall. He has no complaints this morning. OBJECTIVE: On physical exam, patient's left upper extremity has resolving ecchymosis. He has expected tenderness to palpation. He has good flux tube attendant strength. His left lower extremity dressing is intact. Calf is soft. LABORATORY: His labs are pending. IMPRESSION: 1. Postop day #1 status post intramedullary nailing of the left femur. 2. Left nondisplaced greater tuberosity fracture. PLAN: At this point, we will begin mobilization from [id number]. Patient will be nonweightbearing at this time of left upper extremity and partial weightbearing left lower extremity. Patient is recovering. He is 5 months out status post ORIF for left supracondylar periprosthetic distal femur fracture. We will plan on changing his dressing tomorrow. We will consult social worker health services for discharge planning. cc: Fabian Frances MD
[2019-07-18 07:14] LABS: AGAP 11; ALB/GLOB RATIO 1.6; ALKALINE PHOSPHATASE 46 U/L (32-122); BUN 5 mg/dL (8-22); CALCIUM 7.7 mg/dL (8.8-10.2); CHLORIDE 101 mmol/L (98-107); CK TOTAL 446 U/L (24-204); COSMO 273; CREATININE 0.5 mg/dL (0.7-1.2); ESTIMATED GFR > 60; GLUCOSE 99 mg/dL (70-104); GOT 30 U/L (10-34); GPT 26 U/L (10-44); MAGNESIUM 1.6 mg/dL (1.5-2.7); POTASSIUM 3.5 mmol/L (3.5-5.1); SODIUM 138 mmol/L (136-145); TCO2 26 mmol/L (25-35); TOTAL BILIRUBIN 0.87 mg/dL (0.20-1.00); TOTAL PROTEIN 4.9 g/dL (6.3-8.3)
[2019-07-18 07:37] LABS: BASO# 0.01 X1000 (0.0-0.2); BASO% 0.2 % (0.0-0.8); EOS# 0.18 X1000 (0.0-0.7); EOS% 4.4 % (0.0-10.0); HEMATOCRIT 19.1 % (42.0-52.0); HEMOGLOBIN 6.3 g/dL (14.0-18.0); LYMPH# 0.91 X1000 (1.2-3.4); LYMPH% 22.2 % (20.5-51.1); MCH 34.2 PG (27-31); MCV 103.8 FL (81-99); MONO# 0.35 X1000 (0.11-0.59); MONO% 8.6 % (1.7-9.3); NEUT# 2.64 X1000 (1.4-6.5); NEUT% 64.6 % (42.2-75.2); PLT 75 X1000 (130-400); RBC 1.84 XMIL (4.7-6.1); RDW 13.5 % (11.5-14.5); WBC 4.09 X1000 (4.8-10.8)
[2019-07-18] MEDS: FERROUS SULFATE PO SCH (08:31)
[2019-07-18] MEDS: PERIDEX MT SCH ×2 (08:31→22:07)
[2019-07-18] MEDS: PRINIVIL PO SCH (08:31)
[2019-07-18] MEDS: NORVASC PO SCH ×2 (08:31→22:13)
[2019-07-18] MEDS: TENORMIN PO SCH (08:31)
[2019-07-18] MEDS: ALTACE PO SCH ×2 (08:32→22:07)
[2019-07-18] MEDS ORDERED: NS 500 ML IV ONE (08:48)
--- NOTE | 2019-07-18 09:15 | Diag Imaging Result Doc PS360 ---
EXAM: US GB < RUQ (LIMITED) HISTORY: elevated liver enzymes TECHNIQUE: Right upper quadrant ultrasound COMPARISON: 12/03/2016 FINDINGS: The gallbladder has been removed. The common bile duct measures 5 mm. There is fatty infiltration of the liver. No ascites in the right upper quadrant. Normal right kidney. No hydronephrosis. The pancreas, aorta, and inferior vena cava are obscured. IMPRESSION: Fatty infiltration of the liver Electronically signed by Wally Kirby 07/18/2019 9:13 AM
[2019-07-18] MEDS ORDERED: NS 500 ML IV SCH (10:00)
--- NOTE | 2019-07-18 18:11 | PROGRESS NOTE ---
DATE: 07/18/2019 SUBJECTIVE: Today, Mr. Thomas refers to be doing fairly okay. He said he was evaluated early on today by Physical Therapy. OBJECTIVE: Vital: Blood pressure is 122/53, pulse of 66, respirations 18, temperature 98.0 degrees. General: Mr. Thomas is a 73-year-old, gentleman. He is in bed in no distress. Mucosa is pink and moist. Anicteric. Acyanotic. Neck: Supple. Chest: Clear to auscultation. Cardiovascular: Regular rate and rhythm. Abdomen: Soft. Extremities: No pedal edema. Central nervous system: Patient is awake, alert, and oriented x4. Musculoskeletal: There is a dressing over the left lateral hip which looks remarkably clean. DIAGNOSTIC DATA: Operative report shows that an intramedullary nailing of the left femur was done for a left displaced intertrochanteric femur fracture. ASSESSMENT/PLAN: 1. Status post mechanical fall resulting in a left intertrochanteric displaced femur fracture. Patient underwent intramedullary nailing yesterday by Orthopedics. Today is day 1 postoperative, has already been seen by Physical Therapy. He seems to be doing remarkably well. 2. Left humeral lateral head fracture. Patient continues to be in orthopedics sling. He has been evaluated by Orthopedics on that as well. 3. Alcohol use and abuse. The patient has been advised. 4. Anemia of acute blood loss. We will group and crossmatch Mr. Thomas for 1 PRBC transfusion. We will re-evaluate his hemoglobin and hematocrit for tomorrow morning. 5. Elevated plasma alcohol level (level of 188), consistent with intoxication. cc: Grover Dietz MD
[2019-07-18] MEDS: COLACE PO SCH (22:07)
[2019-07-19] MEDS: NS 1,000 ML IV SCH ×2 (01:36→10:36)
[2019-07-19] MEDS: OXY IR PO PRN ×5 (01:38→22:18)
[2019-07-19] MEDS: TYLENOL PO SCH ×3 (01:43→17:02)
[2019-07-19] MEDS: XARELTO PO SCH (05:36)
[2019-07-19 06:45] LABS: BASO# 0.01 X1000 (0.0-0.2); BASO% 0.3 % (0.0-0.8); EOS# 0.18 X1000 (0.0-0.7); EOS% 5.2 % (0.0-10.0); HEMATOCRIT 21.6 % (42.0-52.0); HEMOGLOBIN 7.3 g/dL (14.0-18.0); LYMPH% 26.2 % (20.5-51.1); MCH 33.6 PG (27-31); MCHC 33.8 g/dL (33-37); MCV 99.5 FL (81-99); MONO# 0.39 X1000 (0.11-0.59); MONO% 11.3 % (1.7-9.3); MPV 9.9 FL (7.4-10.4); NEUT# 1.96 X1000 (1.4-6.5); PLT 99 X1000 (130-400); RBC 2.17 XMIL (4.7-6.1); RDW 16.3 % (11.5-14.5); WBC 3.44 X1000 (4.8-10.8)
[2019-07-19 07:04] LABS: AGAP 10; ALB/GLOB RATIO 1.4; ALKALINE PHOSPHATASE 47 U/L (32-122); BUN 5 mg/dL (8-22); CALCIUM 7.5 mg/dL (8.8-10.2); CHLORIDE 102 mmol/L (98-107); CK TOTAL 325 U/L (24-204); COSMO 273; CREATININE 0.5 mg/dL (0.7-1.2); ESTIMATED GFR > 60; GLUCOSE 99 mg/dL (70-104); GOT 25 U/L (10-34); GPT 23 U/L (10-44); MAGNESIUM 1.6 mg/dL (1.5-2.7); POTASSIUM 3.5 mmol/L (3.5-5.1); SODIUM 138 mmol/L (136-145); TCO2 26 mmol/L (25-35); TOTAL BILIRUBIN 0.79 mg/dL (0.20-1.00); TOTAL PROTEIN 5.1 g/dL (6.3-8.3)
[2019-07-19] MEDS: ALTACE PO SCH ×2 (08:18→20:59)
[2019-07-19] MEDS: PRINIVIL PO SCH (08:18)
[2019-07-19] MEDS: TENORMIN PO SCH (08:18)
[2019-07-19] MEDS: FERROUS SULFATE PO SCH (08:18)
[2019-07-19] MEDS: PERIDEX MT SCH ×2 (08:19→20:59)
[2019-07-19] MEDS ORDERED: MOTRIN PO PRN (09:06)
--- NOTE | 2019-07-19 09:22 | ORTHOPAEDICS PROGRESS NOTE ---
DATE: 07/19/2019 Mr. Thomas is seen status post TFN fixation of the hip. His incisions are all clean and dry. His motor and sensory are intact. There are no signs of DVT or complication. We will plan on continuing to mobilize him. They will change his dressings today. We will be available as needed at this point. He can be discharged to home or rehab Sunday or Sunday pending his overall mobility status and pain control. cc: Saeid Montaño MD
[2019-07-19] MEDS: NEUTRA-PHOS PO SCH ×4 (09:24→20:59)
[2019-07-19] MEDS: MAG-OX PO SCH ×2 (09:24→20:59)
[2019-07-19 12:42] LABS: HEPATITIS PROFILE ACUTE SEE COMMENTS
[2019-07-19] MEDS: MILK OF MAGNESIA PO PRN (13:32)
--- NOTE | 2019-07-19 14:55 | PROGRESS NOTE ---
DATE: 07/19/2019 SUBJECTIVE: This morning Mr. Thomas refers to be doing fairly okay. No new complaints. Has already been seen by Orthopedics. OBJECTIVE: Vital signs: Blood pressure is 140/77, pulse of 70, respirations 16, temperature is 98.1 degrees. General exam: Mr. Thomas is a 73-year-old gentleman. He is in bed, was not in any distress. HEENT: Mucosa is pink and moist. Anicteric. Acyanotic. Neck: Supple. Chest: Clear to auscultation. No crepitations. No rhonchi. Cardiovascular: Regular rate and rhythm. GI: Abdomen was soft, distended, but nontender. Bowel sounds present. Extremities: No pedal edema. The left lower extremity is minimally swollen at the thigh level. It has gotten a little tense, but the dressing over the surgical incision looks clean. LABORATORY DATA: WBC is 3.44, hemoglobin is 7.3, platelet count of 99. Chemistry is also reviewed; it is completely within normal range. The patient's phosphorus was 2.5 yesterday, magnesium is 1.6 today. ASSESSMENT: 1. Status post mechanical fall resulting in left intertrochanteric displaced femur fracture. Patient is status post titanium trochanteric nail fixation of the hip. He does have some postsurgical changes in the thigh, but otherwise unremarkable. Today is day 2 postoperatively. 2. Left humeral lateral head fracture. The patient continues to be in orthopedic sling. 3. Alcohol use and abuse. Patient has been counseled. 4. Anemia of acute blood loss. Patient is status post 1 packed red blood cell transfusion. Hemoglobin and hematocrit is stabilized. 5. Mild pancytopenia presumably from alcohol abuse. 6. Intoxication on presentation with alcohol level of 188 noted. PLAN: So, in general, I think Mr. Thomas is doing well. Physical therapy saw him today. He seems to still need moderate to max assist for transfers. We will continue working with physical therapy throughout the weekend. We will reassess him Sunday to see if he will be able to go home, or he needs to go to inpatient rehab. Mr. Thomas is currently on Xarelto for DVT prophylaxis. cc: Grover Dietz MD
[2019-07-19] MEDS: COLACE PO SCH (20:59)
[2019-07-19] MEDS: NORVASC PO SCH (20:59)
[2019-07-20] MEDS: TYLENOL PO SCH ×3 (02:38→17:43)
[2019-07-20] MEDS ORDERED: TEARISOL OPH SOLUTION BOTH EYES PRN (03:39)
[2019-07-20] MEDS: OXY IR PO PRN ×2 (04:35→08:36)
[2019-07-20] MEDS: XARELTO PO SCH (06:02)
[2019-07-20 06:30] LABS: BASO# 0.01 X1000 (0.0-0.2); BASO% 0.3 % (0.0-0.8); EOS# 0.17 X1000 (0.0-0.7); EOS% 4.9 % (0.0-10.0); HEMATOCRIT 23.3 % (42.0-52.0); HEMOGLOBIN 7.9 g/dL (14.0-18.0); LYMPH# 0.79 X1000 (1.2-3.4); LYMPH% 22.8 % (20.5-51.1); MCH 33.9 PG (27-31); MCHC 33.9 g/dL (33-37); MONO# 0.43 X1000 (0.11-0.59); MONO% 12.4 % (1.7-9.3); MPV 9.7 FL (7.4-10.4); NEUT# 2.07 X1000 (1.4-6.5); NEUT% 59.6 % (42.2-75.2); PLT 131 X1000 (130-400); RBC 2.33 XMIL (4.7-6.1); WBC 3.47 X1000 (4.8-10.8)
[2019-07-20 07:12] LABS: AGAP 11; ALB/GLOB RATIO 1.4; ALBUMIN 3.2 g/dL (3.5-5.0); ALKALINE PHOSPHATASE 54 U/L (32-122); BUN 4 mg/dL (8-22); CALCIUM 8.2 mg/dL (8.8-10.2); CHLORIDE 99 mmol/L (98-107); CK TOTAL 278 U/L (24-204); COSMO 268; CREATININE 0.6 mg/dL (0.7-1.2); ESTIMATED GFR > 60; GLUCOSE 92 mg/dL (70-104); GOT 28 U/L (10-34); GPT 21 U/L (10-44); MAGNESIUM 1.8 mg/dL (1.5-2.7); POTASSIUM 3.5 mmol/L (3.5-5.1); SODIUM 136 mmol/L (136-145); TCO2 26 mmol/L (25-35); TOTAL BILIRUBIN 1.05 mg/dL (0.20-1.00); TOTAL PROTEIN 5.5 g/dL (6.3-8.3)
[2019-07-20] MEDS: TENORMIN PO SCH (08:36)
[2019-07-20] MEDS: PRINIVIL PO SCH (08:36)
[2019-07-20] MEDS: NEUTRA-PHOS PO SCH ×4 (08:36→22:04)
[2019-07-20] MEDS: MAG-OX PO SCH ×2 (08:36→22:04)
[2019-07-20] MEDS: FERROUS SULFATE PO SCH (08:36)
[2019-07-20] MEDS: PERIDEX MT SCH ×2 (08:36→22:04)
[2019-07-20] MEDS: ALTACE PO SCH ×2 (08:36→22:03)
--- NOTE | 2019-07-20 14:40 | PROGRESS NOTE ---
DATE: 07/20/2019 SUBJECTIVE: This morning Mr. Thomas referred to be doing well. No new complaints. OBJECTIVE: Vital signs: Blood pressure is 147/76, pulse of 72, respiration 19, temperature 97.9 degrees. General: Mr. Thomas is a 73-year-old gentleman. He is in bed in no distress. HEENT: Mucosa is pink and moist. Anicteric. Acyanotic. Neck: Supple. Chest: Good air entry bilaterally. No crepitations. No rhonchi. Cardiovascular: Regular rate and rhythm. No murmurs, no rubs, no gallops. GI: Abdomen soft, nontender. Extremities: No pedal edema. Distal pulses are present. There is left lower extremity is minimally swollen up at the thigh due to postsurgical changes. There is the surgical incision is a affronted with clips. It looks clean. No bleeding. LABORATORY DATA: Hemoglobin is 7.9, platelet count of 131,000. AST, ALT, stable. Hepatitis panel is nonreactive. IMAGING STUDIES: An ultrasound of the abdomen did show fatty infiltration of the liver. ASSESSMENT: 1. Status post mechanical fall resulting in the left intertrochanteric displaced femur fracture. Patient is status post some titanium trochanteric fixation nail of the of the hip with some with some postsurgical changes in the thigh. Today is day 3 postop. He is doing well with physical therapy. 2. Left humeral lateral head fracture. Patient continues to be in sling. 3. Alcohol use and abuse patient is counseled. 4. Anemia of acute blood loss patient is status post 1 packed red blood cell transfusion. Hemoglobin and hematocrit is stable. 5. Mild pancytopenia presumably from alcohol use. Numbers are getting slightly better. 6. Intoxication on presentation with a serum alcohol level of 188. 7. Macrocytosis. 8. Fatty liver disease presumably from alcohol abuse. The patient has been advised. DISPOSITION: Pending rehab placement by physical by Piping Engineer. cc: MD BARBER Avery
[2019-07-20] MEDS: COLACE PO SCH (22:03)
[2019-07-20] MEDS: NORCO-7.5 PO PRN (22:04)
[2019-07-20] MEDS: NORVASC PO SCH (22:04)
[2019-07-21] MEDS: TYLENOL PO SCH ×2 (02:01→10:20)
[2019-07-21] MEDS: OXY IR PO PRN ×2 (02:03→10:29)
[2019-07-21] MEDS: XARELTO PO SCH (06:07)
[2019-07-21 07:10] LABS: BASO# 0.01 X1000 (0.0-0.2); BASO% 0.3 % (0.0-0.8); EOS# 0.14 X1000 (0.0-0.7); HEMATOCRIT 24.1 % (42.0-52.0); LYMPH# 0.89 X1000 (1.2-3.4); LYMPH% 25.5 % (20.5-51.1); MCH 33.2 PG (27-31); MCHC 33.2 g/dL (33-37); MONO# 0.45 X1000 (0.11-0.59); MONO% 12.9 % (1.7-9.3); MPV 9.2 FL (7.4-10.4); NEUT% 57.3 % (42.2-75.2); PLT 164 X1000 (130-400); RBC 2.41 XMIL (4.7-6.1); RDW 15.8 % (11.5-14.5); WBC 3.49 X1000 (4.8-10.8)
[2019-07-21 07:25] LABS: AGAP 12; ALB/GLOB RATIO 1.3; ALBUMIN 3.2 g/dL (3.5-5.0); ALKALINE PHOSPHATASE 53 U/L (32-122); BUN 5 mg/dL (8-22); CALCIUM 8.4 mg/dL (8.8-10.2); CHLORIDE 102 mmol/L (98-107); CK TOTAL 180 U/L (24-204); COSMO 275; CREATININE 0.5 mg/dL (0.7-1.2); ESTIMATED GFR > 60; GLUCOSE 103 mg/dL (70-104); GOT 23 U/L (10-34); GPT 19 U/L (10-44); MAGNESIUM 1.8 mg/dL (1.5-2.7); POTASSIUM 3.5 mmol/L (3.5-5.1); SODIUM 139 mmol/L (136-145); TCO2 25 mmol/L (25-35); TOTAL BILIRUBIN 1.14 mg/dL (0.20-1.00); TOTAL PROTEIN 5.7 g/dL (6.3-8.3)
[2019-07-21] MEDS: NEUTRA-PHOS PO SCH ×2 (10:20→14:01)
[2019-07-21] MEDS: PRINIVIL PO SCH (10:20)
[2019-07-21] MEDS: PERIDEX MT SCH (10:20)
[2019-07-21] MEDS: TENORMIN PO SCH (10:20)
[2019-07-21] MEDS: MAG-OX PO SCH (10:20)
[2019-07-21] MEDS: ALTACE PO SCH (10:21)
[2019-07-21] MEDS: FERROUS SULFATE PO SCH (10:21)
--- NOTE | 2019-07-21 10:49 | DISCHARGE SUMMARY ---
ADMISSION DATE: 07/15/2019 DISCHARGE DATE: 07/21/2019 DIAGNOSES: 1. Status post mechanical fall, resulting in left intertrochanteric displaced femur fracture, status post intramedullary nailing on 07/17/2019. 2. Left lateral humeral head fracture. The patient continues in sling. 3. Alcohol use and abuse. 4. Anemia of acute blood loss. The patient has been transfused 1 unit of packed cells. 5. Mild pancytopenia, presumably from alcohol use. 6. Macrocytosis. 7. Fatty liver disease, presumably from alcohol abuse. DIAGNOSTICS: 1. On 07/15/2019, CT of the head and cervical spine revealed no evidence of acute intracranial disease. Degenerative changes of the cervical spine. 2. On 07/15/2019, chest x-ray revealed no injury. Lungs are well expanded. No pneumothorax. No contusion. Heart is not enlarged. Vessels are not distended. There are no infiltrates. 3. Shoulder x-ray, left, revealed lateral humeral head fracture. 4. Left knee x-ray revealed healing fracture of the distal femur, status post internal fixation. 5. Hip and pelvis x-ray: Left intertrochanteric fracture. 6. Microbiology: Blood cultures with no growth after 5 days. HOSPITAL COURSE: Mr. Thomas presented to the emergency room after losing his balance and falling and sustaining a left humeral head fracture. He was also found to have a left displaced intertrochanteric femur fracture, for which he underwent intramedullary nailing of the left femur with a Synthes TFN 10 x [address] Karen Frances. He has progressed well with this. He has had no signs of DVT or complication. He has been followed by Physical Therapy, and thankfully he is ready for discharge to rehab today. He was intoxicated on admission to the hospital, having a serum alcohol level of 188, for which he was followed. Thankfully, he had no withdrawal nor complications. He has been counseled on the importance of alcohol cessation. Initial hemoglobin and hematocrit dropped to 6.3 and 19.1 on 07/18/2019, for which he was transfused 1 unit of packed cells. Hemoglobin and hematocrit are now 9 8 and 24.1. He does have a history of thrombocytopenia. Platelets dropped to 75. They are 164 today. He was noted to have a left humeral lateral head fracture, for which he is followed by Orthopedics. He continues to be in a sling for this. DISCHARGE PHYSICAL EXAMINATION: Vital Signs: Blood pressure is 152/80, with heart rate of 70, respirations 18, temperature 98.5 degrees oral, with room air saturations 94% to 97%. Cardiovascular: Regular rate and rhythm. S1 and S2 appreciated. Extremities: He does have some left lower extremity edema around the thigh secondary to postsurgical changes. He has no lower extremity or pedal edema. Calves are nontender bilaterally, with peripheral pulses palpable x4 extremities. Pulmonary: Breath sounds are clear with no increased work of breathing noted. Chest rises and falls symmetrically with respiration. Gastrointestinal: Abdomen is soft, nontender, nondistended, with bowel sounds in all 4 quadrants. Skin: Warm and dry. Incision to left hip is intact and clear, with jyoti intact. DISCHARGE MEDICATIONS: 1. Xarelto 10 mg p.o. every 24 hours. 2. Magnesium oxide 400 mg p.o. b.i.d. 3. Atarax 50 mg p.o. every 6 hours p.r.n. 4. [place] 7.5 every 4 hours p.r.n. pain. 5. Ferrous sulfate 325 mg p.o. with breakfast. 6. Colace 200 mg p.o. at bedtime. 7. Altace 10 mg p.o. b.i.d. 8. Atenolol 25 mg p.o. at bedtime. 9. Norvasc 5 mg p.o. at bedtime. FOLLOWUP: Dr. Frances as instructed. DISPOSITION: He is being discharged to [facility] in stable condition, with family members present. TIME SPENT: This is a greater than 30-minute discharge. Dictated by NALDO Henry for Grover Dietz MD cc: NALDO Henry MD I have seen and examined Mr. Thomas today. He is clinically stable for discharge. Mr. Thomas is discharging to [facility]. I agree with the above summary. [facility]
[2019-07-21] MEDS: MILK OF MAGNESIA PO PRN (11:35)
[2019-07-21 15:25] VITALS: BP 135/79
== END 2019-07-21 17:25 | DRG 956 ==
LOC: P.ED 12:10 → P.ICU 15:44 → SUATTDRO 15:44 → 4N 07-16 13:07
PROVIDERS: ATTEND Internal Medicine